=== PATIENT | male | born 1935 | race Caucasian/White ===

== ENCOUNTER → 2017-04-10 | Outpatient (CLI) | payer MEDICARE ==
[~2017-04-10] MED LIST: ACYCLOVIR 400M400 MG PO; AMLO5TAB PO; ASPIRIN 81MG TA81 MG PO; ASTEPRO205.5 MCG/ IH; AZITHROMYCIN250 MG PO; B12 IM; BISACODYL PR; BISOPROLOL 5MG T5 MG PO; CEFDINIR300 M1 PO; CIPRO 500MG TA500 MG PO; CIPROFLOXACIN500 M2 PO; COMBIVENT1 ARO IH; CRESTOR10 MG PO; DIAZEPAM5 MG PO; DUONEB 3 MG/3 ML3 ML IH; ERYTHROMYC3.5 GM/TUB OP; FLAGYL 500MG.500 MG PO; GUAIFENESIN PO; IPRATROPIUM BROM3 M1 IN; LEVAQUIN500 MG PO; LEVOFLOXACIN 5500 MG PO; LISINOPRIL 20MG20 MG PO; LISINOPRIL/HCTZ1 TA3 FT; MAXZIDE 25 MG-31 TAB PO; METRONIDAZOLE500 MG PO; MIRALAX17 GM/DOSE PO; MYLICON 80MG. C80 MG PO; NAPROSYN 500MG500 MG PO; NASONEX0.05 MG/AC IH; NYSTATIN 1100000 UNI PO; PANTOPRAZOLE SO40 MG PO; POTASSIUM CHLO20 ME2 PO; PREDNISONE 10MG10 MG PO; PREDNISONE 20MG20 MG PO; PREDNISONE1 MG PO; PREDNISONE20 MG PO; RAYOS2 MG PO; SALMETEROL-F28 PUFF1 IH; SALMETEROL-F28 PUFF1 IN; SIMVASTATIN40 MG PO; SINGULAIR 10 MG10 MG PO; SUP PR; VANCOMYCIN HCL PO; VENTOLIN H0.09 MG/AC IH; ZITHROMAX Z-PA250 M2 PO; ZOFRAN4 MG PO; [UNRECOGNIZED DRUG - OTHER] PO
--- NOTE | 2017-04-10 11:18 | CARDIOVASCULAR REPORT ---
"Cerebrovascular Exam IMPRESSIONS 1. The bilateral vertebral arteries are patent with normal antegrade flow. 2. Study suggests 50-69% stenosis involving the right internal carotid artery. 3. Study suggests 20-49% stenosis involving the left internal carotid artery. 4. Difficult exam. Carotid duplex study. Complete study and Doppler flow study including spectral analysis, color and cintron scale imaging. Height: Height: 170.2cm. Height: 67in. Weight: Weight: 81.6kg. Weight: 179.6lb. Body mass index: BMI: 28.2kg/m^2. Body surface area: BSA: 1.98m^2. Location: Vascular laboratory. Patient status: Outpatient. Tables: Arterial flow: + +--------+--------+ |Location |V sys |V ed | + +--------+--------+ |Right CCA - proximal|77.8cm/s|14.1cm/s| + +--------+--------+ |Right CCA - distal |61.8cm/s|14.3cm/s| + +--------+--------+ |Right ECA |177cm/s |--------| + +--------+--------+ |Right ICA - proximal|182cm/s |42.8cm/s| + +--------+--------+ |Right ICA - mid |68cm/s |22cm/s | + +--------+--------+ |Right ICA - distal |59cm/s |18.9cm/s| + +--------+--------+ |Right vertebral |37.4cm/s|--------| + +--------+--------+ |Left CCA - proximal |120cm/s |19.2cm/s| + +--------+--------+ |Left CCA - distal |73.9cm/s|17.6cm/s| + +--------+--------+ |Left ECA |125cm/s |--------| + +--------+--------+ |Left ICA - proximal |120cm/s |30.2cm/s| + +--------+--------+ |Left ICA - mid |130cm/s |30.2cm/s| + +--------+--------+ |Left ICA - distal |94.9cm/s|24.5cm/s| + +--------+--------+ |Left vertebral |23.9cm/s|--------| + +--------+--------+ Velocity ratios: + + + + + + | |Right, V sys|Right, V ed|Left, V sys|Left, V ed| + + + + + + |Max ICA/dist CCA|2.94 |2.99 |1.76 |1.72 | + + + + + + (Report amended ) Electronically signed by: Ronald Holloway [id number]"
== END ==
LOC: RT 10:00
DX: I63.412 Cerebral infarction due to embolism of left middle cerebral artery (principal)

== ENCOUNTER → 2017-05-02 | Outpatient (CLI) | payer MEDICARE ==
[~2017-05-02] MED LIST changes: +HYDROCODONE-APA1 TA1 PO; +KEFLEX 250MG.250 MG PO
--- NOTE | 2017-05-02 15:23 | RADIOLOGY REPORT PS360 ---
CT CHEST W/O CONTRAST HISTORY: Shortness of breath SHORT OF BREATH ORDERING PHYSICIAN: Phoenix Nieves MD PATIENT AGE: 81 years TECHNIQUE: Axial images obtained without contrast. COMPARISON: 01/27/2015 FINDINGS: There is diffuse coronary artery calcification. There is normal heart size. No evidence of pericardial effusion. No mediastinal or hilar mass is evident. There is mild prominence of the ascending aorta at 4.1 cm. Incidental note made of gynecomastia. Calcified granulomas present in the right upper lobe. There is mild degree of motion artifact. Fibrotic/atelectatic changes are present in the lung bases. There are centrilobular emphysematous changes. No lobar consolidation or collapse is evident. Mild thickening of the left major fissure inferiorly with atelectatic or fibrotic changes in the lingula. Mild bronchial thickening. No suspicious pulmonary nodules or effusions. Upper abdominal images show some residual contrast within the renal collecting system from the recent CT a of the neck. There is kyphosis of the thoracic spine with multilevel thoracic spondylosis. No acute fractures are evident. 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 IMPRESSION: 1. No change from 01/27/2015 with no acute finding. 2. Centrilobular emphysematous change with obstructive chronic bronchitis. 3. Coronary artery disease 4. Mild ectasia of the ascending aorta at 4.1 cm
== END ==
LOC: RAD 12:01
DX: R06.02 Shortness of breath (principal)

== ENCOUNTER 2017-05-06 16:39 | Emergency (ER) | payer MEDICARE, OTHER ==
[~2017-05-06] VITALS: Ht 167.6 cm; Wt 81.6 kg
[~2017-05-06 16:39] MED LIST changes: -HYDROCODONE-APA1 TA1 PO; -KEFLEX 250MG.250 MG PO
[2017-05-06] MEDS ORDERED: KEFLEX 250MG.250 MG PO (17:02)
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
--- NOTE | 2017-05-06 18:39 | RADIOLOGY REPORT PS360 ---
[id number] VIEWS, CHEST(2 VIEWS-NOT PORTABLE) HISTORY: PT FELL, LEFT LATERAL RIB PAIN Patient Age: 81 years: Male Ordering Physician: Shraddha Walls MD TECHNIQUE: 1. Left ribs oblique views with AP chest above and below diaphragm 2. PA and lateral chest x-ray COMPARISON :Previous CT chest 05/02/2017 and 2 view chest 01/29/2017 ======== ------LEFT RIBS SERIES---- The oblique view the left ribs shows a cortical irregularity at the left sixth rib. No focally tender here this would be suspect for recent fracture there may be an old fracture of the left fifth rib above this on this view. ...... ---CHEST PA AND LATERAL-- AP & lateral chest appears stable when compared to previous chest film 01/29/2017. & CT chest on 05-02-17. The density extending from the left heart border reflects thickening along the major fissure on the left along with tenting of the anterior fat pad. This is been seen best on the recent CT chest. Less optimal inspiration slightly since lung markings. Perhaps some very minor vascular engorgement but no overt CHF. Borderline cardiomegaly. Ashley and mediastinal structures satisfactory. Severe Advanced arthritic changes of both shoulders instantly noted.. No pneumothorax nor pleural effusion ] IMPRESSION: 1. Left lateral sixth rib fracture suspect. Focal tenderness here required to support as acute 2. No pneumothorax. No pleural effusion No active disease in the chest 3. Thickening & scarring along major fissure on the left; along with tenting of anterior fat pad accounts for the appearance along left heart border.. Borderline cardiomegaly
[2017-05-06] MEDS ORDERED: HYDROCODONE-APA1 TA1 PO (19:04)
--- NOTE | 2017-05-06 19:08 | RADIOLOGY REPORT PS360 ---
HAND-LT-3 VIEWS HISTORY: fell on asphalat and 4th and 5ht finger deformed and reduc fractures pain Patient Age: 81 years: Male Ordering Physician: Shraddha Walls MD TECHNIQUE: 3 views left hand COMPARISON :None FINDINGS . Slightly comminuted Fractures involving the proximal metaphysis of the second, third, and fourth finger.. Mild anterior offset of distal fracture fragments. Mainly transverse fracture but slight oblique and spiral component is particularly at the third digit. At the second digit the fracture may involve the very very posterior margin of the articular cortex. Angulation at the the fracture of the second and third digit directed anteriorly. Joint space narrowing degenerative arthritic changes DIP and PIP joint joint of the fingers. Marked joint space narrowing, reflecting arthritic changes at the radial--lunate joint. Arthritic, sclerotic and hypertrophic changes at the first carpal-metacarpal joint changes here. . Metacarpals intact. Middle and distal phalanges intact. IMPRESSION : 1. Fractures involving proximal aspect of proximal phalanx of fingers 2 , 3 and 4. . Mild comminution. Mild angulation Mild cortical step-off at each of these fractures 2 prominent. Degenerative arthritic changes hand and wrist
[2017-05-06 19:31] VITALS: BP 136/88
== END 2017-05-06 19:32 | disposition home or self-care (01) ==
LOC: ER 16:39
PROC: 0HQ1XZZ Repair Face Skin, External Approach (ICD-10-PCS; principal; 2017-05-06)
PROC: 0HQGXZZ Repair Left Hand Skin, External Approach (ICD-10-PCS; principal; 2017-05-06)
DX: S61.412A Laceration without foreign body of left hand, initial encounter (principal); S01.112A Laceration without foreign body of left eyelid and periocular area, initial encounter; W01.0XXA Fall on same level from slipping, tripping and stumbling without subsequent striking against object, initial encounter; Y92.019 Unspecified place in single-family (private) house as the place of occurrence of the external cause; S22.32XA Fracture of one rib, left side, initial encounter for closed fracture; S62.611B Displaced fracture of proximal phalanx of left index finger, initial encounter for open fracture; S62.613B Displaced fracture of proximal phalanx of left middle finger, initial encounter for open fracture; S62.615B Displaced fracture of proximal phalanx of left ring finger, initial encounter for open fracture; Z79.82 Long term (current) use of aspirin; I10 Essential (primary) hypertension; E78.5 Hyperlipidemia, unspecified; J44.9 Chronic obstructive pulmonary disease, unspecified; Z87.891 Personal history of nicotine dependence

== ENCOUNTER → 2017-05-09 | Outpatient (CLI) | payer MEDICARE ==
[2017-05-09 11:00] VITALS: BP 123/74
[2017-05-09 11:15] VITALS: BP 125/81
== END ==
LOC: RAD 09:15 → RT 09:42
DX: R06.02 Shortness of breath (principal); J44.9 Chronic obstructive pulmonary disease, unspecified

== ENCOUNTER → 2017-05-27 | Outpatient (CLI) | payer MEDICARE, OTHER ==
[~2017-05-27] MED LIST changes: +HYDROCODONE-APA1 TA1 PO; +KEFLEX 250MG.250 MG PO
--- NOTE | 2017-05-27 11:45 | RADIOLOGY REPORT PS360 ---
CT HEAD W/O CONTRAST HISTORY: OCCIPITAL STROKE, HTN ORDERING PHYSICIAN: JOSIE TALAVERA PATIENT AGE: 81 years COMPARISON: 05/06/2017 TECHNIQUE: Axial images obtained without contrast. Brain and bone windows reviewed. FINDINGS: No midline shift, mass effect, intracranial hemorrhage, hydrocephalus, or extra-axial fluid collection is evident. There is generalized atrophy with chronic periventricular microvascular ischemic gliotic changes. There is an old infarction in the medial aspect of the right occipital lobe with encephalomalacia change. The calvarium has an unremarkable appearance. No mastoid effusion. The visualized paranasal sinuses are unremarkable. IMPRESSION: 1. No change with no acute finding. 2. Chronic ischemic change with old infarction in the right occipital lobe.
[2017-05-28 08:45] LABS: Rapid Plasma Reagin, Quant Non Reactive (NonRea<1:1)
[2017-05-28 09:38] LABS: Vitamin B12 626 pg/mL (211-946)
[2017-05-31 05:41] LABS: Folate (Folic Acid) >20.0 ng/mL (>3.0)
== END ==
LOC: RAD 05-20 13:45
PROVIDERS: Specialist
DX: I63.9 Cerebral infarction, unspecified (principal); I10 Essential (primary) hypertension; E78.5 Hyperlipidemia, unspecified; J44.9 Chronic obstructive pulmonary disease, unspecified; Z79.899 Other long term (current) drug therapy

== ENCOUNTER → 2017-07-25 | Outpatient (CLI) | payer MEDICARE, OTHER ==
[2017-07-25 11:26] LABS: LYMPH # 1.1 K/mm3 (0.7-4.5)
[2017-07-26 08:44] LABS: Vitamin D, 25-Hydroxy 41.9 ng/mL (30.0-100.0)
== END ==
LOC: LAB 10:56
PROVIDERS: Allergy & Immunology
DX: E55.9 Vitamin D deficiency, unspecified (principal)